=== PATIENT | male | born 1990 | race Caucasian/White ===

== ENCOUNTER 2018-06-02 13:05 | Inpatient (IN) | payer OTHER ==
[~2018-06-02] VITALS: Ht 180.3 cm; Wt 105.8 kg
[2018-06-02] MEDS ORDERED: IV NORMAL SALINE 1000ML BAG 1,000 ML IV ONE (13:15)
[2018-06-02 13:23] LABS: BASO % 0 % (0-3); EOS # 0.1 x10^3/uL (0.0-0.7); EOS % 0 % (0-3); HEMATOCRIT 45.6 % (39.0-53.0); HEMOGLOBIN 15.3 g/dL (13.0-17.5); LYMPH # 3.2 x10^3/uL (1.0-4.8); LYMPH % 21 % (24-48); MEAN CORPUSCULAR HEMOGLOBIN 30 pg (25-35); MEAN CORPUSCULAR HGB CONC 34 g/dL (31-37); MEAN CORPUSCULAR VOLUME 89 fL (79-100); MONO # 1.1 x10^3/uL (0.0-1.1); MONO % 7 % (0-9); NEUT % 71 % (31-73); PLATELET COUNT 308 x10^3/uL (140-400); RED BLOOD COUNT 5.15 x10^6/uL (4.30-5.70); RED CELL DISTRIBUTION WIDTH 14.9 % (11.5-14.5); WHITE BLOOD COUNT 15.4 x10^3/uL (4.0-11.0)
[2018-06-02 13:34] LABS: CALCIUM 9.3 mg/dL (8.5-10.1); CREATININE 1.2 mg/dL (0.7-1.3); GFR 72.1
[2018-06-02 13:41] LABS: ALBUMIN 4.5 g/dL (3.4-5.0); ALBUMIN/GLOBULIN RATIO 1.1 (1.0-1.7); PROTHROMBIN TIME PATIENT 12.4 SEC (11.7-14.0); TOTAL BILIRUBIN 0.3 mg/dL (0.2-1.0); TOTAL PROTEIN 8.6 g/dL (6.4-8.2)
--- NOTE | 2018-06-02 13:50 | RAD ---
CT brain without contrast. HISTORY: Seizure first-time seizure CT scan of brain was done without contrast. There is no intracranial hemorrhage or subdural hematoma. Ventricles are normal in size. There is no mass or shift of the midline. An acute CVA is not identified. Mastoids are normally aerated. Sinuses are clear. IMPRESSION: 1. No intracranial hemorrhage or acute finding noted. PQRS Compliance Statement: One or more of the following individualized dose reduction techniques were utilized for this examination: 1. Automated exposure control 2. Adjustment of the mA and/or kV according to patient size 3. Use of iterative reconstruction technique Electronically signed by: Fred Melgar MD (06/02/2018 1:47 PM) [facility] [place]
--- NOTE | 2018-06-02 14:11 | PHYS DOC ---
Past Medical History Past Medical History: No Pertinent History, Hypertension Past Surgical History: No Surgical History Alcohol Use: None Drug Use: None Adult General Chief Complaint Chief Complaint: SEIZURE HPI HPI Patient is a 28 year old MALE was brought here by EMS for evaluation of seizure activity. Patient had one last night, Patient denies any head or neck injury at that time. Patient did not have any history of seizure disorder. Patient woke up this morning then had another seizure when he bit his tongue. He had no history diabetic, no history of coronary artery disease. Patient said he has history hypertension, he is on losartan. Review of Systems Review of Systems Constitutional: Denies fever or chills [] Eyes: Denies change in visual acuity, redness, or eye pain [] HENT: Denies nasal congestion , POSITIVE FOR TONGUE INSURY Respiratory: Denies cough or shortness of breath [] Cardiovascular: No additional information not addressed in HPI [] GI: Denies abdominal pain, nausea, vomiting, bloody stools or diarrhea [] : Denies dysuria or hematuria [] Musculoskeletal: Denies back pain or joint pain [] Integument: Denies rash or skin lesions [] Neurologic: Positive for headache and seizure NO focal weakness or sensory changes [] Endocrine: Denies polyuria or polydipsia [] All other systems were reviewed and found to be within normal limits, except as documented in this note. Current Medications Current Medications Current Medications Medications (Trade) Dose Ordered Sig/[facility] Start Time Stop Time Status Last Admin Dose Admin Acetaminophen (Tylenol) 1,000 mg 1X ONCE 06/02/18 14:15 06/02/18 14:16 Levetiracetam 1000 mg/Dextrose 110 ml @ 440 mls/hr 1X ONCE 06/02/18 14:30 06/02/18 14:44 06/02/18 13:52 440 MLS/HR Ondansetron HCl (Zofran) 4 mg PRN Q8HRS PRN 06/02/18 14:15 06/03/18 14:14 UNV Sodium Chloride 1,000 ml @ 1,000 mls/hr 1X ONCE 06/02/18 13:15 06/02/18 14:14 06/02/18 13:52 1,000 MLS/HR Allergies Allergies Allergies Coded Allergies Type Severity Reaction Last Updated Verified No Known Drug Allergies 06/02/18 No Physical Exam Physical Exam Constitutional: Well developed, well nourished, no acute distress, non-toxic appearance. [] HENT: Normocephalic, atraumatic, bilateral external ears normal, nose normal, LEFT ANTERIOR TONGUE ABRASION, CONTUSION WITH BLOOD INSIDE OROPHARYNX AREA. Eyes: PERRLA, EOMI, conjunctiva normal, no discharge. [] Neck: Normal range of motion, no tenderness, supple, no stridor. [] Cardiovascular:Heart rate regular rhythm, no murmur [] Lungs & Thorax: Bilateral breath sounds clear to auscultation [] Abdomen: Bowel sounds normal, soft, no tenderness, no masses, no pulsatile masses. [] Skin: Warm, dry, no erythema, no rash. [] Back: No tenderness, no CVA tenderness. [] Extremities: No tenderness, no cyanosis, no clubbing, ROM intact, no edema. [] Neurologic: Alert and oriented X 3, normal motor function, normal sensory function, no focal deficits noted. [] Psychologic: Affect normal, judgement normal, mood normal. [] Current Patient Data Vital Signs Vital Signs Date Time Temp Pulse Resp B/P (MAP) Pulse Ox O2 Delivery O2 Flow Rate FiO2 06/02/18 13:16 97.9 107 16 154/89 (110) 97 Room Air 97.9 Lab Values Laboratory Tests Test 06/02/18 13:10 White Blood Count 15.4 x10^3/uL (4.0-11.0) H Red Blood Count 5.15 x10^6/uL (4.30-5.70) Hemoglobin 15.3 g/dL (13.0-17.5) Hematocrit 45.6 % (39.0-53.0) Mean Corpuscular Volume 89 fL (79-100) Mean Corpuscular Hemoglobin 30 pg (25-35) Mean Corpuscular Hemoglobin Concent 34 g/dL (31-37) Red Cell Distribution Width 14.9 % (11.5-14.5) H Platelet Count 308 x10^3/uL (140-400) Neutrophils (%) (Auto) 71 % (31-73) Lymphocytes (%) (Auto) 21 % (24-48) L Monocytes (%) (Auto) 7 % (0-9) Eosinophils (%) (Auto) 0 % (0-3) Basophils (%) (Auto) 0 % (0-3) Neutrophils # (Auto) 11.0 x10^3uL (1.8-7.7) H Lymphocytes # (Auto) 3.2 x10^3/uL (1.0-4.8) Monocytes # (Auto) 1.1 x10^3/uL (0.0-1.1) Eosinophils # (Auto) 0.1 x10^3/uL (0.0-0.7) Basophils # (Auto) 0.0 x10^3/uL (0.0-0.2) Prothrombin Time 12.4 SEC (11.7-14.0) Prothrombin Time INR 1.0 (0.8-1.1) PTT 29 SEC (24-38) Sodium Level 137 mmol/L (136-145) Potassium Level 4.0 mmol/L (3.5-5.1) Chloride Level 97 mmol/L (98-107) L Carbon Dioxide Level 21 mmol/L (21-32) Anion Gap 19 (6-14) H Blood Urea Nitrogen 15 mg/dL (8-26) Creatinine 1.2 mg/dL (0.7-1.3) Estimated GFR (Cockcroft-Gault) 72.1 BUN/Creatinine Ratio 13 (6-20) Glucose Level 85 mg/dL (70-99) Calcium Level 9.3 mg/dL (8.5-10.1) Total Bilirubin 0.3 mg/dL (0.2-1.0) Aspartate Amino Transferase (AST) 22 U/L (15-37) Alanine Aminotransferase (ALT) 25 U/L (16-63) Alkaline Phosphatase 49 U/L (46-116) Creatine Kinase 527 U/L (39-308) H Troponin I Quantitative < 0.017 ng/mL (0.000-0.055) Total Protein 8.6 g/dL (6.4-8.2) H Albumin 4.5 g/dL (3.4-5.0) Albumin/Globulin Ratio 1.1 (1.0-1.7) Laboratory Tests 06/02/18 13:10 Laboratory Tests 06/02/18 13:10 EKG EKG EKG : RATE OF 98 BPM, NO STEMI, NSR. [] Radiology/Procedures Radiology/Procedures [][facility] [address] [place] [address] IMAGING REPORT Signed PATIENT: GEETHA DELANEY ACCOUNT: [id number] : 1990 LOCATION: ER AGE: 28 SEX: M EXAM STATUS: PRE ER ORD. PHYSICIAN: JAY WESTFALL DO REASON: seizure PROCEDURE: CT HEAD WO CONTRAST CT brain without contrast. HISTORY: Seizure first-time seizure CT scan of brain was done without contrast. There is no intracranial hemorrhage or subdural hematoma. Ventricles are normal in size. There is no mass or shift of the midline. An acute CVA is not identified. Mastoids are normally aerated. Sinuses are clear. IMPRESSION: 1. No intracranial hemorrhage or acute finding noted. RS Compliance Statement: One or more of the following individualized dose reduction techniques were utilized for this examination: 1. Automated exposure control 2. Adjustment of the mA and/or kV according to patient size 3. Use of iterative reconstruction technique Electronically signed by: Fred Melgar MD (06/02/2018 1:47 PM) [facility] DICTATED and SIGNED BY: FRED MELGAR MD DATE: 06/02/18 1346 Course & Med Decision Making Course & Med Decision Making Pertinent Labs and Imaging studies reviewed. (See chart for details) [] Dragon Disclaimer Dragon Disclaimer This electronic medical record was generated, in whole or in part, using a voice recognition dictation system. Departure Departure Impression: Primary Impression: Seizure Disposition: 09 ADMITTED INPATIENT Admitting Physician: Hitesh Khan Condition: STABLE JAY WESTFALL DO Jun 02, 2018 14:11
[2018-06-02] MEDS ORDERED: ACETAMINOPHEN 500 MG TABLET PO ONE (14:15)
[2018-06-02] MEDS ORDERED: ONDANSETRON PF 4 MG/2 ML VIAL. IV PRN (14:15)
[2018-06-02] MEDS ORDERED: levETIRAcetam 1,000 MG in IV DEXTROSE 5% 100ML 100 ML IV ONE (14:30)
[2018-06-02] MEDS: NICOTINE 21MG PATCH. TD SCH (16:00)
--- NOTE | 2018-06-02 16:46 | PDOC2 ---
NEUROLOGY CONSULT Date of Admission Date of Admission DATE: 06/02/18 TIME: 16:45 Full Report Dictated Patient is a pleasant 28-year-old man who normally goes to bed at 10 PM but was staying awake till 4 AM watching television. He also took for tramadol 4 at once for the first time yesterday. He had a seizure around 4 AM and then a second seizure around noon today. He bit his tongue. He had postictal confusion. There is no history of seizure or head trauma. CT scan of the head was negative. Neurologic examination was negative. I will arrange for an MRI brain with and without contrast and an EEG. I do not feel compelled on an anticonvulsant needs to be initiated at this time unless an abnormality is detected in the studies. Current Medications Current Medications Current Medications Levetiracetam 1000 mg/Dextrose 110 ml @ 440 mls/hr 1X ONCE IV Last administered on 06/02/18at 13:52; Start 06/02/18 at 14:30; Stop 06/02/18 at 14:44 ; Status DC Sodium Chloride 1,000 ml @ 1,000 mls/hr 1X ONCE IV Last administered on at 13:52; Start 06/02/18 at 13:15; Stop 06/02/18 at 14:14; Status DC Acetaminophen (Tylenol) 1,000 mg 1X ONCE PO Last administered on 06/02/18at 15: 00; Start 06/02/18 at 14:15; Stop 06/02/18 at 14:16; Status DC Ondansetron HCl (Zofran) 4 mg PRN Q8HRS PRN IV NAUSEA/VOMITING; Start 06/02/18 at 14:15; Stop 06/03/18 at 14:14 Nicotine (Nicoderm Cq 21mg) 1 patch DAILY TD ; Start 06/02/18 at 16:30 Allergies Allergies: Coded Allergies: No Known Drug Allergies (Unverified , 06/02/18) Vitals VITALS Vital Signs Date Time Temp Pulse Resp B/P (MAP) Pulse Ox O2 Delivery O2 Flow Rate FiO2 06/02/18 14:30 84 100 06/02/18 13:16 97.9 16 154/89 (110) Room Air 97.9 Labs Labs Laboratory Tests Test 06/02/18 13:10 White Blood Count 15.4 x10^3/uL (4.0-11.0) Red Blood Count 5.15 x10^6/uL (4.30-5.70) Hemoglobin 15.3 g/dL (13.0-17.5) Hematocrit 45.6 % (39.0-53.0) Mean Corpuscular Volume 89 fL (79-100) Mean Corpuscular Hemoglobin 30 pg (25-35) Mean Corpuscular Hemoglobin Concent 34 g/dL (31-37) Red Cell Distribution Width 14.9 % (11.5-14.5) Platelet Count 308 x10^3/uL (140-400) Neutrophils (%) (Auto) 71 % (31-73) Lymphocytes (%) (Auto) 21 % (24-48) Monocytes (%) (Auto) 7 % (0-9) Eosinophils (%) (Auto) 0 % (0-3) Basophils (%) (Auto) 0 % (0-3) Neutrophils # (Auto) 11.0 x10^3uL (1.8-7.7) Lymphocytes # (Auto) 3.2 x10^3/uL (1.0-4.8) Monocytes # (Auto) 1.1 x10^3/uL (0.0-1.1) Eosinophils # (Auto) 0.1 x10^3/uL (0.0-0.7) Basophils # (Auto) 0.0 x10^3/uL (0.0-0.2) Prothrombin Time 12.4 SEC (11.7-14.0) Prothromb Time International Ratio 1.0 (0.8-1.1) Activated Partial Thromboplast Time 29 SEC (24-38) Sodium Level 137 mmol/L (136-145) Potassium Level 4.0 mmol/L (3.5-5.1) Chloride Level 97 mmol/L (98-107) Carbon Dioxide Level 21 mmol/L (21-32) Anion Gap 19 (6-14) Blood Urea Nitrogen 15 mg/dL (8-26) Creatinine 1.2 mg/dL (0.7-1.3) Estimated GFR (Cockcroft-Gault) 72.1 BUN/Creatinine Ratio 13 (6-20) Glucose Level 85 mg/dL (70-99) Calcium Level 9.3 mg/dL (8.5-10.1) Total Bilirubin 0.3 mg/dL (0.2-1.0) Aspartate Amino Transf (AST/SGOT) 22 U/L (15-37) Alanine Aminotransferase (ALT/SGPT) 25 U/L (16-63) Alkaline Phosphatase 49 U/L (46-116) Creatine Kinase 527 U/L (39-308) Troponin I Quantitative < 0.017 ng/mL (0.000-0.055) Total Protein 8.6 g/dL (6.4-8.2) Albumin 4.5 g/dL (3.4-5.0) Albumin/Globulin Ratio 1.1 (1.0-1.7) Ethyl Alcohol Level < 10 mg/dL (0-10) Laboratory Tests Test 06/02/18 13:10 White Blood Count 15.4 x10^3/uL (4.0-11.0) Red Blood Count 5.15 x10^6/uL (4.30-5.70) Hemoglobin 15.3 g/dL (13.0-17.5) Hematocrit 45.6 % (39.0-53.0) Mean Corpuscular Volume 89 fL (79-100) Mean Corpuscular Hemoglobin 30 pg (25-35) Mean Corpuscular Hemoglobin Concent 34 g/dL (31-37) Red Cell Distribution Width 14.9 % (11.5-14.5) Platelet Count 308 x10^3/uL (140-400) Neutrophils (%) (Auto) 71 % (31-73) Lymphocytes (%) (Auto) 21 % (24-48) Monocytes (%) (Auto) 7 % (0-9) Eosinophils (%) (Auto) 0 % (0-3) Basophils (%) (Auto) 0 % (0-3) Neutrophils # (Auto) 11.0 x10^3uL (1.8-7.7) Lymphocytes # (Auto) 3.2 x10^3/uL (1.0-4.8) Monocytes # (Auto) 1.1 x10^3/uL (0.0-1.1) Eosinophils # (Auto) 0.1 x10^3/uL (0.0-0.7) Basophils # (Auto) 0.0 x10^3/uL (0.0-0.2) Prothrombin Time 12.4 SEC (11.7-14.0) Prothromb Time International Ratio 1.0 (0.8-1.1) Activated Partial Thromboplast Time 29 SEC (24-38) Sodium Level 137 mmol/L (136-145) Potassium Level 4.0 mmol/L (3.5-5.1) Chloride Level 97 mmol/L (98-107) Carbon Dioxide Level 21 mmol/L (21-32) Anion Gap 19 (6-14) Blood Urea Nitrogen 15 mg/dL (8-26) Creatinine 1.2 mg/dL (0.7-1.3) Estimated GFR (Cockcroft-Gault) 72.1 BUN/Creatinine Ratio 13 (6-20) Glucose Level 85 mg/dL (70-99) Calcium Level 9.3 mg/dL (8.5-10.1) Total Bilirubin 0.3 mg/dL (0.2-1.0) Aspartate Amino Transf (AST/SGOT) 22 U/L (15-37) Alanine Aminotransferase (ALT/SGPT) 25 U/L (16-63) Alkaline Phosphatase 49 U/L (46-116) Creatine Kinase 527 U/L (39-308) Troponin I Quantitative < 0.017 ng/mL (0.000-0.055) Total Protein 8.6 g/dL (6.4-8.2) Albumin 4.5 g/dL (3.4-5.0) Albumin/Globulin Ratio 1.1 (1.0-1.7) Ethyl Alcohol Level < 10 mg/dL (0-10) MAURICIO DO MD Jun 02, 2018 16:46
--- NOTE | 2018-06-02 17:35 | EKG ---
[facility] [address] [place] [address] Test Date: 2018-06-02 Test Time: 13:15:27 Pat Name: GEETHA DELANEY Department: Room: 658 1 Gender: M [employer] Person: GAGE : 1990 Requested By: JAY WESTFALL Order Number: [id number] Reading MD: Jorden Hernandez MD Measurements Intervals [place] Rate: 98 P: 39 MS: 140 QRS: 28 QRSD: 82 T: 24 QT: 330 QTc: 423 Interpretive Statements SINUS RHYTHM Electronically Signed On 06-03-2018 15:22:20 [employer] [facility] TECHNICIAN by Jorden Hernandez MD
[2018-06-02 19:57] VITALS: BP 117/68
--- NOTE | 2018-06-02 22:53 | PDOC1 ---
History and Physical Date of Admission Date of Admission DATE: 06/02/18 TIME: 22:52 Identification/Chief Complaint Chief Complaint seen in er ,28 year old MALE was brought here by EMS for evaluation of seizure activity. Patient had one last night,and today Patient denies any head or neck injury at that time. no history of seizure disorder. did admit to thc use, bit tongue Past Medical History Past Medical History Past Medical History: No Pertinent History, Hypertension Past Surgical History: No Surgical History Alcohol Use: None Drug Use: thc smokes ippd family hx obesity Psych: Addictions Family History Family History: High Cholestrol Social History Smoke: <1 pack per day ALCOHOL: occassional Current Problem List Problem List Problems Medical Problems: (1) Seizure Status: Acute Current Medications Current Medications Current Medications Levetiracetam 1000 mg/Dextrose 110 ml @ 440 mls/hr 1X ONCE IV Last administered on 06/02/18at 13:52; Start 06/02/18 at 14:30; Stop 06/02/18 at 14:44 ; Status DC Sodium Chloride 1,000 ml @ 1,000 mls/hr 1X ONCE IV Last administered on at 13:52; Start 06/02/18 at 13:15; Stop 06/02/18 at 14:14; Status DC Acetaminophen (Tylenol) 1,000 mg 1X ONCE PO Last administered on 06/02/18at 15: 00; Start 06/02/18 at 14:15; Stop 06/02/18 at 14:16; Status DC Ondansetron HCl (Zofran) 4 mg PRN Q8HRS PRN IV NAUSEA/VOMITING; Start 06/02/18 at 14:15; Stop 06/03/18 at 14:14 Nicotine (Nicoderm Cq 21mg) 1 patch DAILY TD Last administered on 06/02/18at 16: 00; Start 06/02/18 at 16:30 Allergies Allergies: Coded Allergies: No Known Drug Allergies (Unverified , 06/02/18) ROS Review of System Review of Systems Review of Systems Constitutional: Denies fever or chills [] Eyes: Denies change in visual acuity, redness, or eye pain [] HENT: Denies nasal congestion , POSITIVE FOR TONGUE INSURY Respiratory: Denies cough or shortness of breath [] Cardiovascular: No additional information not addressed in HPI [] GI: Denies abdominal pain, nausea, vomiting, bloody stools or diarrhea [] : Denies dysuria or hematuria [] Musculoskeletal: Denies back pain or joint pain [] Integument: Denies rash or skin lesions [] Neurologic: Positive for headache and seizure NO focal weakness or sensory changes [] Endocrine: Denies polyuria or polydipsia [] 14 pt systems were reviewed and found to be within normal limits, except as documented PSYCHOLOGICAL ROS: YES: Anxiety Genitourinary: No Dysuria, No Frequency, No Incontinence, No Hematuria, No Retention, No Discharge, No Urgency, No Pain, No Flank Pain, No Other, No , No , No , No , No , No , No Physical Exam Physical Exam Physical Exam Physical Exam Constitutional: Well developed, well nourished, no acute distress, non-toxic appearance. [] HENT: Normocephalic, atraumatic, bilateral external ears normal, nose normal, LEFT ANTERIOR TONGUE ABRASION, CONTUSION WITH BLOOD INSIDE OROPHARYNX AREA. Eyes: PERRLA, EOMI, conjunctiva normal, no discharge. [] Neck: Normal range of motion, no tenderness, supple, no stridor. [] Cardiovascular:Heart rate regular rhythm, no murmur [] Lungs & Thorax: Bilateral breath sounds clear to auscultation [] Abdomen: Bowel sounds normal, soft, no tenderness, no masses, no pulsatile masses. [] Skin: Warm, dry, no erythema, no rash. [] Back: No tenderness, no CVA tenderness. [] Extremities: No tenderness, no cyanosis, no clubbing, ROM intact, no edema. [] Neurologic: Alert and oriented X 3, normal motor function, normal sensory function, no focal deficits noted. [] Psychologic: Affect normal, judgement normal, mood normal. [] General: Alert, Oriented X3, Cooperative Rectal Exam: not examined Extremities: No cyanosis Neuro: Normal speech, Cranial nerves 3-12 NL Vitals Vitals Vital Signs Date Time Temp Pulse Resp B/P (MAP) Pulse Ox O2 Delivery O2 Flow Rate FiO2 06/02/18 20:00 Room Air 06/02/18 19:57 97.3 96 18 117/68 (84) 100 97.3 Labs Labs Laboratory Tests Test 06/02/18 13:10 White Blood Count 15.4 x10^3/uL (4.0-11.0) Red Blood Count 5.15 x10^6/uL (4.30-5.70) Hemoglobin 15.3 g/dL (13.0-17.5) Hematocrit 45.6 % (39.0-53.0) Mean Corpuscular Volume 89 fL (79-100) Mean Corpuscular Hemoglobin 30 pg (25-35) Mean Corpuscular Hemoglobin Concent 34 g/dL (31-37) Red Cell Distribution Width 14.9 % (11.5-14.5) Platelet Count 308 x10^3/uL (140-400) Neutrophils (%) (Auto) 71 % (31-73) Lymphocytes (%) (Auto) 21 % (24-48) Monocytes (%) (Auto) 7 % (0-9) Eosinophils (%) (Auto) 0 % (0-3) Basophils (%) (Auto) 0 % (0-3) Neutrophils # (Auto) 11.0 x10^3uL (1.8-7.7) Lymphocytes # (Auto) 3.2 x10^3/uL (1.0-4.8) Monocytes # (Auto) 1.1 x10^3/uL (0.0-1.1) Eosinophils # (Auto) 0.1 x10^3/uL (0.0-0.7) Basophils # (Auto) 0.0 x10^3/uL (0.0-0.2) Prothrombin Time 12.4 SEC (11.7-14.0) Prothromb Time International Ratio 1.0 (0.8-1.1) Activated Partial Thromboplast Time 29 SEC (24-38) Sodium Level 137 mmol/L (136-145) Potassium Level 4.0 mmol/L (3.5-5.1) Chloride Level 97 mmol/L (98-107) Carbon Dioxide Level 21 mmol/L (21-32) Anion Gap 19 (6-14) Blood Urea Nitrogen 15 mg/dL (8-26) Creatinine 1.2 mg/dL (0.7-1.3) Estimated GFR (Cockcroft-Gault) 72.1 BUN/Creatinine Ratio 13 (6-20) Glucose Level 85 mg/dL (70-99) Calcium Level 9.3 mg/dL (8.5-10.1) Total Bilirubin 0.3 mg/dL (0.2-1.0) Aspartate Amino Transf (AST/SGOT) 22 U/L (15-37) Alanine Aminotransferase (ALT/SGPT) 25 U/L (16-63) Alkaline Phosphatase 49 U/L (46-116) Creatine Kinase 527 U/L (39-308) Troponin I Quantitative < 0.017 ng/mL (0.000-0.055) Total Protein 8.6 g/dL (6.4-8.2) Albumin 4.5 g/dL (3.4-5.0) Albumin/Globulin Ratio 1.1 (1.0-1.7) Ethyl Alcohol Level < 10 mg/dL (0-10) Laboratory Tests Test 06/02/18 13:10 White Blood Count 15.4 x10^3/uL (4.0-11.0) Red Blood Count 5.15 x10^6/uL (4.30-5.70) Hemoglobin 15.3 g/dL (13.0-17.5) Hematocrit 45.6 % (39.0-53.0) Mean Corpuscular Volume 89 fL (79-100) Mean Corpuscular Hemoglobin 30 pg (25-35) Mean Corpuscular Hemoglobin Concent 34 g/dL (31-37) Red Cell Distribution Width 14.9 % (11.5-14.5) Platelet Count 308 x10^3/uL (140-400) Neutrophils (%) (Auto) 71 % (31-73) Lymphocytes (%) (Auto) 21 % (24-48) Monocytes (%) (Auto) 7 % (0-9) Eosinophils (%) (Auto) 0 % (0-3) Basophils (%) (Auto) 0 % (0-3) Neutrophils # (Auto) 11.0 x10^3uL (1.8-7.7) Lymphocytes # (Auto) 3.2 x10^3/uL (1.0-4.8) Monocytes # (Auto) 1.1 x10^3/uL (0.0-1.1) Eosinophils # (Auto) 0.1 x10^3/uL (0.0-0.7) Basophils # (Auto) 0.0 x10^3/uL (0.0-0.2) Prothrombin Time 12.4 SEC (11.7-14.0) Prothromb Time International Ratio 1.0 (0.8-1.1) Activated Partial Thromboplast Time 29 SEC (24-38) Sodium Level 137 mmol/L (136-145) Potassium Level 4.0 mmol/L (3.5-5.1) Chloride Level 97 mmol/L (98-107) Carbon Dioxide Level 21 mmol/L (21-32) Anion Gap 19 (6-14) Blood Urea Nitrogen 15 mg/dL (8-26) Creatinine 1.2 mg/dL (0.7-1.3) Estimated GFR (Cockcroft-Gault) 72.1 BUN/Creatinine Ratio 13 (6-20) Glucose Level 85 mg/dL (70-99) Calcium Level 9.3 mg/dL (8.5-10.1) Total Bilirubin 0.3 mg/dL (0.2-1.0) Aspartate Amino Transf (AST/SGOT) 22 U/L (15-37) Alanine Aminotransferase (ALT/SGPT) 25 U/L (16-63) Alkaline Phosphatase 49 U/L (46-116) Creatine Kinase 527 U/L (39-308) Troponin I Quantitative < 0.017 ng/mL (0.000-0.055) Total Protein 8.6 g/dL (6.4-8.2) Albumin 4.5 g/dL (3.4-5.0) Albumin/Globulin Ratio 1.1 (1.0-1.7) Ethyl Alcohol Level < 10 mg/dL (0-10) Images Images CT scan of brain was done without contrast. There is no intracranial hemorrhage or subdural hematoma. Ventricles are normal in size. There is no mass or shift of the midline. An acute CVA is not identified. Mastoids are normally aerated. Sinuses are clear. IMPRESSION: 1. No intracranial hemorrhage or acute finding noted. VTE Prophylaxis Ordered VTE Prophylaxis Devices: Yes VTE Pharmacological Prophylaxi: Yes Assessment/Plan Assessment/Plan impression 1. seizure, possible relation to substance abuse plan admit seizure precautions iv ativan 1-2 mg q 2-3 hrs prn seizure activity neurology consult tele sq lovenox dvt prophylaxis DONNA JIMENEZ MD Jun 02, 2018 22:52
[2018-06-02] MEDS ORDERED: PIP/TAZO PER PHARMACY MC PRN (23:00)
[2018-06-02 23:09] VITALS: BP 130/70
[2018-06-02 23:15] LABS: BARBITURATES NEG (NEG); BENZODIAZEPINES NEG (NEG); CANNABINOIDS POS (NEG); COCAINE NEG (NEG); METHADONE NEG (NEG); OPIATES NEG (NEG); PHENCYCLIDINE NEG (NEG)
[2018-06-02] MEDS: ENOXAPARIN 40 MG/0.4 ML SYRINGE. SQ SCH (23:15)
[2018-06-02 23:16] LABS: AMPHETAMINE/METHAMPHETAMINE NEG (NEG)
--- NOTE | 2018-06-02 23:17 | CONS ---
DATE OF CONSULTATION: 06/02/2018 REFERRING PHYSICIAN: Hitesh Llanes M.D. REASON FOR CONSULTATION: Seizure. HISTORY OF PRESENT ILLNESS: The patient is a pleasant 28-year-old who was in bed last night, watching his usual TV shows on his phone. His normal bedtime is around 10:00 p.m. but for whatever reason, he was up at 4:00 a.m. watching. The next thing he remembers is waking up on the ground. His was present and reported to him that he shook for 1-2 minutes. She called 911. He remembers waking up confused and not understanding why she had called 911. He refused transport. He had a second seizure around noon today. The seizure also lasted 1-2 minutes. He bit his tongue. He feels extremely sore throughout his body. He has a headache following the seizure. He has not had any fevers. He did take 4 tramadol for the first time yesterday at 2:00 p.m. He also uses oxycodone for pain management for chronic back pain. He has been at home or could he lost his job at at the [employer]. He occasionally smokes marijuana but denies other recreational drugs. He does not drink alcohol. PAST MEDICAL HISTORY: 1. Chronic back pain. 2. Hypertension. ALLERGIES: No known allergies to drugs. MEDICATIONS: Prior to admission: Tramadol, which he is not prescribed and oxycodone, which he is prescribed. He had previously been on losartan for blood pressure. FAMILY HISTORY: He does not report any diseases that run in the family. SOCIAL HISTORY: He is and has an almost 1-year-old son. He does not smoke tobacco. He rarely drinks alcohol with the most recent consumption and on his birthday in [birth year]. He rarely smokes marijuana. REVIEW OF SYSTEMS: He does have a headache. There has been no change of vision or hearing. He does not have any cognitive change. He has soreness of his tongue where he bit it. He has not had trouble swallowing. He has not had shortness of breath, chest or abdominal pain. He does not have bone or joint pain but does have muscular pain after the seizure. He has not had any recent fever or rash. He has chronic constipation only going to the bathroom once per week. He has not been able to urinate since he has been in the hospital. He has trouble initiating urination but then once it gets started, he is fine and does not have a slow stream. He does not complain of numbness or weakness of the extremities. He has not noticed any change in walking or balance. He does not complain of easy bruising, bleeding or swelling. He does not have any psychiatric concerns. PHYSICAL EXAMINATION: VITAL SIGNS: The blood pressure was 154/89, pulse 84, respirations 16 and temperature 97.9 degrees Fahrenheit. Oximetry was 100% on room air. GENERAL: He was alert, awake and cooperative. Speech was fluent and clear. He had a good fund of recent and remote knowledge. Attention and concentration was intact. He appeared well groomed and well nourished. NEUROLOGICAL: Examination of the cranial nerves revealed visual reynolds were full to confrontation. Extraocular movements were intact. The eyes are conjugate. Pursuit movements were smooth and saccadic eye movements were without dysmetria. Pupils were 4 mm and reacted directly and consensually. He did not have an afferent pupillary defect. Funduscopic exam did not reveal papilledema, exudate or hemorrhage. Facial sensation was intact. The muscles of mastication and facial expression were powerful symmetrically. Hearing was intact to finger rub. The palate arched symmetrically and the tongue was midline with full range of motion. Sternocleidomastoid and trapezius were powerful. Muscle bulk and tone was normal. There was no arm drift or abnormal movement. There was no leg drift. The power was full and symmetric in the upper and lower extremities. Reflexes were 2/4 and symmetric in the upper and lower extremities. The toes are downgoing. Coordination testing with [id number], [id number], fine motor and rapid alternating movements was well performed. The sensory exam was intact to pain, light touch, proprioception, graphesthesia, cold thermal and vibration. There was no extinction to double simultaneous stimulation. Gait was normal base and was steady. He is able to heel, toe and tandem walk. The Romberg stance was negative. Auscultation of the carotid arteries did not reveal a bruit. Heart rhythm was regular without a murmur. Peripheral pulses were 2/4 and symmetric in the hands and feet. There was no edema or cyanosis of the extremities. LABORATORY DATA: Review of the laboratory data: CBC revealed an elevated white blood cell count of 15.4 with normal hemoglobin, hematocrit and platelet count. Chemistry revealed normal sodium and potassium but chloride was low at 97 and CO2 normal at 21. The BUN, creatinine and GFR calculated normally. The glucose was normal. Calcium and albumin were normal. The total protein was elevated at 8.6. Liver enzymes are not elevated. CPK was elevated to 527. Troponin was not elevated. Alcohol was not detected. PT/INR was 1 and PTT was 29. RADIOLOGICAL DATA: CT scan of the brain was performed without contrast on 06/02/2018 and revealed no acute intracranial process. IMPRESSION: The patient is a 28-year-old who had a seizure twice today one occurring at 4:00 a.m. and the other around noon. Both lasted about a minute and a half to 2 minutes long and were followed by postictal phase. He bit his tongue on the left side. The cause of the seizure may be a number of extenuating circumstances with sleep deprivation as well as tramadol. He does not have a prior history of seizure or head trauma. His neurologic exam was normal. RECOMMENDATIONS: I would recommend we proceed with an MRI brain with and without contrast with seizure protocol. We will also obtain an EEG. If both of these studies were negative, then I would not feel compelled that he needs to be definitely initiated on an anticonvulsant. I would advise him to stay away from tramadol and to protect his sleep. We also discussed other things, which can lower seizure threshold such as fever, sedating antihistamines and decongestants. We also discussed that some recreational drugs can also lower the seizure threshold. If the investigation is negative, then potentially he will be dismissed on 06/03/2018. I appreciate being involved in his care. MAURICIO DO MD DR: JOSUE/jana JOB#: [id number] / [id number] Dr BARBARA Steen THOMAS MD Shi, Dr
[2018-06-02] MEDS ORDERED: LOSA1TAB22 (23:28)
[2018-06-02] MEDS ORDERED: HYDR-2766 (23:28)
[2018-06-02] MEDS ORDERED: ALPR1TAB6 (23:28)
[2018-06-03 03:05] VITALS: BP 109/70
[2018-06-03] MEDS: PIPERACILLIN/TAZOBACTAM 4.5 GM in IV NORMAL SALINE 100ML 100 ML IV SCH ×4 (05:32→11:26)
[2018-06-03 07:00] VITALS: BP 114/64
[2018-06-03 11:00] VITALS: BP 123/73
[2018-06-03] MEDS: NICOTINE 21MG PATCH. TD SCH (11:24)
[2018-06-03] MEDS: HYDROcodone/APAP 10/325 1 TAB TABLET PO PRN ×3 (11:43→21:05)
--- NOTE | 2018-06-03 11:53 | PDOC ---
PROGRESS NOTES History of Present Illness History of Present Illness VTE Prophylaxis Ordered VTE Prophylaxis Devices: Yes VTE Pharmacological Prophylaxi: Yes Assessment/Plan Assessment/Plan impression 1. seizure, possible relation to substance abuse, THC 2. htn 3. chronic pain followed by PCP [facility] plan admit seizure precautions iv ativan 1-2 mg q 2-3 hrs prn seizure activity neurology consult PENDING tele sq lovenox dvt prophylaxis Vitals Vitals Vital Signs Date Time Temp Pulse Resp B/P (MAP) Pulse Ox O2 Delivery O2 Flow Rate FiO2 06/03/18 11:43 98 Room Air 06/03/18 11:00 98.2 76 20 123/73 (90) 98.2 Physical Exam General: Alert, Oriented X3, Cooperative, No acute distress Heart: Regular rate, Normal S1, Normal S2 Lungs: Clear Abdomen: Normal bowel sounds, Soft Extremities: No clubbing, No cyanosis Skin: No significant lesion Labs LABS Laboratory Tests Test 06/02/18 13:10 06/02/18 23:00 White Blood Count 15.4 x10^3/uL (4.0-11.0) Red Blood Count 5.15 x10^6/uL (4.30-5.70) Hemoglobin 15.3 g/dL (13.0-17.5) Hematocrit 45.6 % (39.0-53.0) Mean Corpuscular Volume 89 fL (79-100) Mean Corpuscular Hemoglobin 30 pg (25-35) Mean Corpuscular Hemoglobin Concent 34 g/dL (31-37) Red Cell Distribution Width 14.9 % (11.5-14.5) Platelet Count 308 x10^3/uL (140-400) Neutrophils (%) (Auto) 71 % (31-73) Lymphocytes (%) (Auto) 21 % (24-48) Monocytes (%) (Auto) 7 % (0-9) Eosinophils (%) (Auto) 0 % (0-3) Basophils (%) (Auto) 0 % (0-3) Neutrophils # (Auto) 11.0 x10^3uL (1.8-7.7) Lymphocytes # (Auto) 3.2 x10^3/uL (1.0-4.8) Monocytes # (Auto) 1.1 x10^3/uL (0.0-1.1) Eosinophils # (Auto) 0.1 x10^3/uL (0.0-0.7) Basophils # (Auto) 0.0 x10^3/uL (0.0-0.2) Prothrombin Time 12.4 SEC (11.7-14.0) Prothromb Time International Ratio 1.0 (0.8-1.1) Activated Partial Thromboplast Time 29 SEC (24-38) Sodium Level 137 mmol/L (136-145) Potassium Level 4.0 mmol/L (3.5-5.1) Chloride Level 97 mmol/L (98-107) Carbon Dioxide Level 21 mmol/L (21-32) Anion Gap 19 (6-14) Blood Urea Nitrogen 15 mg/dL (8-26) Creatinine 1.2 mg/dL (0.7-1.3) Estimated GFR (Cockcroft-Gault) 72.1 BUN/Creatinine Ratio 13 (6-20) Glucose Level 85 mg/dL (70-99) Calcium Level 9.3 mg/dL (8.5-10.1) Total Bilirubin 0.3 mg/dL (0.2-1.0) Aspartate Amino Transf (AST/SGOT) 22 U/L (15-37) Alanine Aminotransferase (ALT/SGPT) 25 U/L (16-63) Alkaline Phosphatase 49 U/L (46-116) Creatine Kinase 527 U/L (39-308) Troponin I Quantitative < 0.017 ng/mL (0.000-0.055) Total Protein 8.6 g/dL (6.4-8.2) Albumin 4.5 g/dL (3.4-5.0) Albumin/Globulin Ratio 1.1 (1.0-1.7) Ethyl Alcohol Level < 10 mg/dL (0-10) Urine Opiates Screen Neg (NEG) Urine Methadone Screen Neg (NEG) Urine Barbiturates Neg (NEG) Urine Phencyclidine Screen Neg (NEG) Urine Amphetamine/Methamphetamine Neg (NEG) Urine Benzodiazepines Screen Neg (NEG) Urine Cocaine Screen Neg (NEG) Urine Cannabinoids Screen Pos (NEG) Urine Ethyl Alcohol Neg (NEG) Assessment and Plan Assessmemt and Plan Problems Medical Problems: (1) Seizure Status: Acute Comment Review of Relevant I have reviewed the following items karlie (where applicable) has been applied. Labs Laboratory Tests Test 06/02/18 13:10 06/02/18 23:00 White Blood Count 15.4 x10^3/uL (4.0-11.0) Red Blood Count 5.15 x10^6/uL (4.30-5.70) Hemoglobin 15.3 g/dL (13.0-17.5) Hematocrit 45.6 % (39.0-53.0) Mean Corpuscular Volume 89 fL (79-100) Mean Corpuscular Hemoglobin 30 pg (25-35) Mean Corpuscular Hemoglobin Concent 34 g/dL (31-37) Red Cell Distribution Width 14.9 % (11.5-14.5) Platelet Count 308 x10^3/uL (140-400) Neutrophils (%) (Auto) 71 % (31-73) Lymphocytes (%) (Auto) 21 % (24-48) Monocytes (%) (Auto) 7 % (0-9) Eosinophils (%) (Auto) 0 % (0-3) Basophils (%) (Auto) 0 % (0-3) Neutrophils # (Auto) 11.0 x10^3uL (1.8-7.7) Lymphocytes # (Auto) 3.2 x10^3/uL (1.0-4.8) Monocytes # (Auto) 1.1 x10^3/uL (0.0-1.1) Eosinophils # (Auto) 0.1 x10^3/uL (0.0-0.7) Basophils # (Auto) 0.0 x10^3/uL (0.0-0.2) Prothrombin Time 12.4 SEC (11.7-14.0) Prothromb Time International Ratio 1.0 (0.8-1.1) Activated Partial Thromboplast Time 29 SEC (24-38) Sodium Level 137 mmol/L (136-145) Potassium Level 4.0 mmol/L (3.5-5.1) Chloride Level 97 mmol/L (98-107) Carbon Dioxide Level 21 mmol/L (21-32) Anion Gap 19 (6-14) Blood Urea Nitrogen 15 mg/dL (8-26) Creatinine 1.2 mg/dL (0.7-1.3) Estimated GFR (Cockcroft-Gault) 72.1 BUN/Creatinine Ratio 13 (6-20) Glucose Level 85 mg/dL (70-99) Calcium Level 9.3 mg/dL (8.5-10.1) Total Bilirubin 0.3 mg/dL (0.2-1.0) Aspartate Amino Transf (AST/SGOT) 22 U/L (15-37) Alanine Aminotransferase (ALT/SGPT) 25 U/L (16-63) Alkaline Phosphatase 49 U/L (46-116) Creatine Kinase 527 U/L (39-308) Troponin I Quantitative < 0.017 ng/mL (0.000-0.055) Total Protein 8.6 g/dL (6.4-8.2) Albumin 4.5 g/dL (3.4-5.0) Albumin/Globulin Ratio 1.1 (1.0-1.7) Ethyl Alcohol Level < 10 mg/dL (0-10) Urine Opiates Screen Neg (NEG) Urine Methadone Screen Neg (NEG) Urine Barbiturates Neg (NEG) Urine Phencyclidine Screen Neg (NEG) Urine Amphetamine/Methamphetamine Neg (NEG) Urine Benzodiazepines Screen Neg (NEG) Urine Cocaine Screen Neg (NEG) Urine Cannabinoids Screen Pos (NEG) Urine Ethyl Alcohol Neg (NEG) Laboratory Tests Test 06/02/18 13:10 06/02/18 23:00 White Blood Count 15.4 x10^3/uL (4.0-11.0) Red Blood Count 5.15 x10^6/uL (4.30-5.70) Hemoglobin 15.3 g/dL (13.0-17.5) Hematocrit 45.6 % (39.0-53.0) Mean Corpuscular Volume 89 fL (79-100) Mean Corpuscular Hemoglobin 30 pg (25-35) Mean Corpuscular Hemoglobin Concent 34 g/dL (31-37) Red Cell Distribution Width 14.9 % (11.5-14.5) Platelet Count 308 x10^3/uL (140-400) Neutrophils (%) (Auto) 71 % (31-73) Lymphocytes (%) (Auto) 21 % (24-48) Monocytes (%) (Auto) 7 % (0-9) Eosinophils (%) (Auto) 0 % (0-3) Basophils (%) (Auto) 0 % (0-3) Neutrophils # (Auto) 11.0 x10^3uL (1.8-7.7) Lymphocytes # (Auto) 3.2 x10^3/uL (1.0-4.8) Monocytes # (Auto) 1.1 x10^3/uL (0.0-1.1) Eosinophils # (Auto) 0.1 x10^3/uL (0.0-0.7) Basophils # (Auto) 0.0 x10^3/uL (0.0-0.2) Prothrombin Time 12.4 SEC (11.7-14.0) Prothromb Time International Ratio 1.0 (0.8-1.1) Activated Partial Thromboplast Time 29 SEC (24-38) Sodium Level 137 mmol/L (136-145) Potassium Level 4.0 mmol/L (3.5-5.1) Chloride Level 97 mmol/L (98-107) Carbon Dioxide Level 21 mmol/L (21-32) Anion Gap 19 (6-14) Blood Urea Nitrogen 15 mg/dL (8-26) Creatinine 1.2 mg/dL (0.7-1.3) Estimated GFR (Cockcroft-Gault) 72.1 BUN/Creatinine Ratio 13 (6-20) Glucose Level 85 mg/dL (70-99) Calcium Level 9.3 mg/dL (8.5-10.1) Total Bilirubin 0.3 mg/dL (0.2-1.0) Aspartate Amino Transf (AST/SGOT) 22 U/L (15-37) Alanine Aminotransferase (ALT/SGPT) 25 U/L (16-63) Alkaline Phosphatase 49 U/L (46-116) Creatine Kinase 527 U/L (39-308) Troponin I Quantitative < 0.017 ng/mL (0.000-0.055) Total Protein 8.6 g/dL (6.4-8.2) Albumin 4.5 g/dL (3.4-5.0) Albumin/Globulin Ratio 1.1 (1.0-1.7) Ethyl Alcohol Level < 10 mg/dL (0-10) Urine Opiates Screen Neg (NEG) Urine Methadone Screen Neg (NEG) Urine Barbiturates Neg (NEG) Urine Phencyclidine Screen Neg (NEG) Urine Amphetamine/Methamphetamine Neg (NEG) Urine Benzodiazepines Screen Neg (NEG) Urine Cocaine Screen Neg (NEG) Urine Cannabinoids Screen Pos (NEG) Urine Ethyl Alcohol Neg (NEG) Medications Current Medications Levetiracetam 1000 mg/Dextrose 110 ml @ 440 mls/hr 1X ONCE IV Last administered on 06/02/18at 13:52; Start 06/02/18 at 14:30; Stop 06/02/18 at 14:44 ; Status DC Sodium Chloride 1,000 ml @ 1,000 mls/hr 1X ONCE IV Last administered on at 13:52; Start 06/02/18 at 13:15; Stop 06/02/18 at 14:14; Status DC Acetaminophen (Tylenol) 1,000 mg 1X ONCE PO Last administered on 06/02/18at 15: 00; Start 06/02/18 at 14:15; Stop 06/02/18 at 14:16; Status DC Ondansetron HCl (Zofran) 4 mg PRN Q8HRS PRN IV NAUSEA/VOMITING; Start 06/02/18 at 14:15; Stop 06/03/18 at 14:14 Nicotine (Nicoderm Cq 21mg) 1 patch DAILY TD Last administered on 06/03/18at 11: 24; Start 06/02/18 at 16:30 Piperacillin Sod/ Tazobactam Sod (Zosyn Per Pharmacy) 1 each PRN DAILY PRN MC SEE COMMENTS; Start 06/02/18 at 23:00 Lorazepam (Ativan) 2 mg PRN Q4HRS PRN IV ANXIETY / AGITATION Last administered on 06/03/18at 11:48; Start 06/02/18 at 23:00 Enoxaparin Sodium (Lovenox 40mg Syringe) 40 mg Q24H SQ ; Start 06/02/18 at 23:15 Piperacillin Sod/ Tazobactam Sod 4.5 gm/Sodium Chloride 100 ml @ 200 mls/hr Q6HRS IV Last administered on 06/03/18at 11:26; Start 06/03/18 at 00:00 Acetaminophen/ Hydrocodone Bitart (Lortab 10/325) 1 tab PRN Q4HRS PRN PO PAIN Last administered on 06/03/18at 11:43; Start 06/03/18 at 11:30 Active Scripts Active Reported Losartan-Hctz 100-25 Mg Tab (Losartan/Hydrochlorothiazide) 1 Each Tablet 1 DAILY08 Hydrocodone-Apap 10-325 (Hydrocodone Bit/Acetaminophen) 1 Each Tablet 2 Q4HRS PRN Alprazolam 1 Mg Tablet 1 TID PRN PRN Vitals/I & O Vital Sign - Last 24 Hours 06/02/18 06/02/18 06/02/18 06/02/18 13:16 13:30 14:30 19:57 Temp 97.9 97.3 97.9 97.3 Pulse 107 94 84 96 Resp 16 18 B/P (MAP) 154/89 (110) 117/68 (84) Pulse Ox 97 100 100 100 O2 Delivery Room Air Room Air 06/02/18 06/02/18 06/03/18 06/03/18 20:00 23:09 03:05 07:00 Temp 97.8 97.7 98.3 97.8 97.7 98.3 Pulse 80 71 86 Resp 19 16 22 B/P (MAP) 130/70 (90) 109/70 (83) 114/64 (81) Pulse Ox 98 98 99 O2 Delivery Room Air Room Air Room Air Room Air 06/03/18 06/03/18 11:00 11:43 Temp 98.2 98.2 Pulse 76 Resp 20 B/P (MAP) 123/73 (90) Pulse Ox 98 98 O2 Delivery Room Air Room Air Intake and Output 06/02/18 06/02/18 06/03/18 15:00 23:00 07:00 Intake Total 1100 ml 730 ml Output Total 1950 ml Balance 1100 ml -1220 ml DONNA JIMENEZ MD Jun 03, 2018 11:53
[2018-06-03] MEDS ORDERED: ALPRAZolam 1 MG TABLET PO PRN (14:45)
[2018-06-03 15:00] VITALS: BP 137/82
[2018-06-03] MEDS: LOSARTAN POTASSIUM 50 MG TABLET. PO SCH (15:00)
[2018-06-03] MEDS: hydroCHLOROthiazide 25 MG TABLET PO SCH (15:00)
[2018-06-03] MEDS ORDERED: HYDROcodone/APAP 10/325 1 TAB TABLET PO PRN (15:00)
--- NOTE | 2018-06-03 16:49 | RAD ---
Lumbar spine, 3 views, 06/03/2018: HISTORY: Low back pain The lumbar disc spaces and vertebral heights are well-maintained. No fracture or subluxation is evident. A slight lumbar scoliosis may be positional. The paraspinous soft tissues are unremarkable. IMPRESSION: No significant bony abnormality is detected. Electronically signed by: Wil Lopez MD (06/03/2018 4:46 PM) [facility]
--- NOTE | 2018-06-03 17:45 | PDOC ---
PROGRESS NOTES Assessment Assessment IMPRESSION: Seizure, provoked by Cannabinoids likely. Cannabinoids use/abuse x 10 years. Smoking for 10 years. Obesity. RECOMMENDATIONS/PLAN: EEG. Dilantin 400 mg HS after EEG. Patient education for seizure precautions. Patient education for drug abstinence. No driving x 6 months anytime after a seizure. FU with PCP. HCT: Negative. Past Medical History Hypertension PAST SURGICAL HISTORY: No major surgery. Family History High Cholestrol PAST SURGICAL HISTORY: No major surgery. ALLERGY: NKDA SOCIAL HISTORY: Smoking 1. 5 pack of cigarettes a day for about 190 years. Marijuana on a regular basis for 10 years. MEDICATIONS: Refer to [facility] REVIEW OF SYSTEMS: Constitutional: Obesity. Head: No traumatic brain or head injury. Skin: No edema, or rash. Ear: No infection. Eyes: No vision loss, or diplopia. Nose: No bleeding or purulent discharges. Hearing: No hearing decrease. Neck: No injury. Breast: No history of cancer, masses, or discharges. Cardiac: HTN Pulmonary: No pneumonia. GI: No GI Ulcer, GI bleeding, GERD Urinary/genital: No dysuria, incontinence, urinary retention, UTI. Endocrine: Obesity. Skeletomuscular: No muscular atrophy, deformity. Neurological: see HP. Psychiatric: Drug use/abuse. Otherwise, not [id number] review of systems. PHYSICAL EXAMINATION: General appearance in no acute distress. HEENT: Normocephalic and nontraumatic. Eyes, nose, ears, and throat are unremarkable. Neck is supple. No lymphadenopathy. No bruits are heard over the carotid artery. No Crepitus. Cardiovascular: S1, S2, regular rate and rhythm. Pulmonary: Clear to auscultation bilaterally. Abdomen: Bowel sounds are positive. Abdomen is soft, nontender, and nondistended. Extremities: No rash, lesions, or edema. No restriction of range of motion NEUROLOGICAL EXAMINATION: Alert. Oriented to time, place and person. PERRL. EOMI. CN: no focal findings. Muscle tone: within normal. Muscle strength: 5 DTR: 2 Plantar reflex: Flexor response bilaterally Gait: At baseline normal. Sensory exam: no abnormal findings. No cerebellar signs elicited. F-T-N test accurate. Objective Objective Vital Signs Date Time Temp Pulse Resp B/P (MAP) Pulse Ox O2 Delivery O2 Flow Rate FiO2 06/03/18 17:27 20 06/03/18 15:00 98.2 87 137/82 (100) 99 Room Air 98.2 Intake and Output 06/03/18 07:00 Intake Total 1830 ml Output Total 1950 ml Balance -120 ml Intake Oral 730 ml IV Total 1100 ml Output Urine Total 1950 ml # Voids 5 Vitals Signs Vitals VS - Last 72 Hours, by Label Date Time Temp Pulse Resp B/P (MAP) Pulse Ox O2 Delivery O2 Flow Rate FiO2 06/03/18 17:27 20 06/03/18 15:00 98.2 87 20 137/82 (100) 99 Room Air 98.2 06/03/18 12:57 98 Room Air 06/03/18 11:43 98 Room Air 06/03/18 11:00 98.2 76 20 123/73 (90) 98 Room Air 98.2 06/03/18 08:00 Room Air 06/03/18 07:00 98.3 86 22 114/64 (81) 99 Room Air 98.3 06/03/18 03:05 97.7 71 16 109/70 (83) 98 Room Air 97.7 06/02/18 23:09 97.8 80 19 130/70 (90) 98 Room Air 97.8 06/02/18 20:00 Room Air 06/02/18 19:57 97.3 96 18 117/68 (84) 100 Room Air 97.3 06/02/18 14:30 84 100 06/02/18 13:30 94 100 06/02/18 13:16 97.9 107 16 154/89 (110) 97 Room Air 97.9 Laboratory Laboratory Laboratory Tests Test 06/02/18 23:00 Urine Opiates Screen Neg (NEG) Urine Methadone Screen Neg (NEG) Urine Barbiturates Neg (NEG) Urine Phencyclidine Screen Neg (NEG) Urine Amphetamine/Methamphetamine Neg (NEG) Urine Benzodiazepines Screen Neg (NEG) Urine Cocaine Screen Neg (NEG) Urine Cannabinoids Screen Pos (NEG) Urine Ethyl Alcohol Neg (NEG) Medication Medications Current Medications Acetaminophen/ Hydrocodone Bitart (Lortab 10/325) 1 tab PRN Q4HRS PRN PO PAIN Last administered on 06/03/18at 17:27; Start 06/03/18 at 11:30 Acetaminophen/ Hydrocodone Bitart (Lortab 10/325) 2 tab PRN Q4HRS PRN PO MODERATE TO SEVERE PAIN; Start 06/03/18 at 15:00; Stop 06/03/18 at 17:25; Status DC Alprazolam (Xanax) 1 mg TID PRN PRN PO ANXIETY / AGITATION; Start 06/03/18 at 14:45 Enoxaparin Sodium (Lovenox 40mg Syringe) 40 mg Q24H SQ ; Start 06/02/18 at 23:15 Hydrochlorothiazide (Hydrodiuril) 25 mg DAILY PO Last administered on at 15:00; Start 06/03/18 at 15:00 Lorazepam (Ativan) 2 mg PRN Q4HRS PRN IV ANXIETY / AGITATION Last administered on 06/03/18at 11:48; Start 06/02/18 at 23:00 Losartan Potassium (Cozaar) 100 mg DAILY PO ; Start 06/03/18 at 15:00 Piperacillin Sod/ Tazobactam Sod (Zosyn Per Pharmacy) 1 each PRN DAILY PRN MC SEE COMMENTS; Start 06/02/18 at 23:00 Piperacillin Sod/ Tazobactam Sod 3.375 gm/Sodium Chloride 50 ml @ 100 mls/hr Q6HRS IV ; Start 06/03/18 at 18:00 Piperacillin Sod/ Tazobactam Sod 4.5 gm/Sodium Chloride 100 ml @ 200 mls/hr Q6HRS IV Last administered on 06/03/18at 11:26; Start 06/03/18 at 00:00; Stop 06/03/18 at 14:40; Status DC Comment Review of Relevant I have reviewed the following items karlie (where applicable) has been applied. BLANCO LANGLEY MD Jun 03, 2018 17:45
[2018-06-03] MEDS: PIPERACILLIN/TAZOBACTAM 3.375 GM in IV NORMAL SALINE 50ML 50 ML IV SCH (18:00)
[2018-06-03 19:35] VITALS: BP 144/84
[2018-06-03] MEDS: ENOXAPARIN 40 MG/0.4 ML SYRINGE. SQ SCH (21:06)
[2018-06-03 23:40] VITALS: BP 139/70
[2018-06-04 03:07] LABS: BARBITURATES NEG (NEG); BENZODIAZEPINES NEG (NEG); CANNABINOIDS POS (NEG); COCAINE NEG (NEG); METHADONE NEG (NEG); OPIATES POS (NEG); PHENCYCLIDINE NEG (NEG)
[2018-06-04 03:08] LABS: AMPHETAMINE/METHAMPHETAMINE POS (NEG)
[2018-06-04 03:40] VITALS: BP 120/66
[2018-06-04 05:17] LABS: BASO % 0 % (0-3); EOS # 0.2 x10^3/uL (0.0-0.7); EOS % 2 % (0-3); HEMATOCRIT 42.5 % (39.0-53.0); HEMOGLOBIN 14.5 g/dL (13.0-17.5); LYMPH # 3.7 x10^3/uL (1.0-4.8); LYMPH % 39 % (24-48); MEAN CORPUSCULAR HEMOGLOBIN 30 pg (25-35); MEAN CORPUSCULAR HGB CONC 34 g/dL (31-37); MEAN CORPUSCULAR VOLUME 89 fL (79-100); MONO # 0.7 x10^3/uL (0.0-1.1); MONO % 7 % (0-9); NEUT # 4.7 x10^3uL (1.8-7.7); NEUT % 51 % (31-73); PLATELET COUNT 253 x10^3/uL (140-400); RED CELL DISTRIBUTION WIDTH 14.9 % (11.5-14.5); WHITE BLOOD COUNT 9.3 x10^3/uL (4.0-11.0)
[2018-06-04 05:38] LABS: ALBUMIN 3.8 g/dL (3.4-5.0); ALBUMIN/GLOBULIN RATIO 1.1 (1.0-1.7); CALCIUM 9.3 mg/dL (8.5-10.1); CREATININE 0.9 mg/dL (0.7-1.3); GFR 100.5; POTASSIUM 4.2 mmol/L (3.5-5.1); TOTAL BILIRUBIN 0.3 mg/dL (0.2-1.0); TOTAL PROTEIN 7.4 g/dL (6.4-8.2)
[2018-06-04] MEDS: PIPERACILLIN/TAZOBACTAM 3.375 GM in IV NORMAL SALINE 50ML 50 ML IV SCH ×3 (06:00)
[2018-06-04 07:30] VITALS: BP 125/74
[2018-06-04] MEDS: LOSARTAN POTASSIUM 50 MG TABLET. PO SCH ×2 (08:22→08:26)
[2018-06-04] MEDS: hydroCHLOROthiazide 25 MG TABLET PO SCH ×2 (08:22→08:26)
[2018-06-04] MEDS: HYDROcodone/APAP 10/325 1 TAB TABLET PO PRN (08:22)
[2018-06-04] MEDS: NICOTINE 21MG PATCH. TD SCH (08:24)
--- NOTE | 2018-06-04 09:16 | PDOC ---
PROGRESS NOTES History of Present Illness History of Present Illness VTE Prophylaxis Ordered VTE Prophylaxis Devices: Yes VTE Pharmacological Prophylaxi: Yes Assessment/Plan Assessment/Plan impression 1. seizure, possible relation to substance abuse, THC 2. htn 3. chronic pain followed by PCP [facility] left ama plan admit seizure precautions iv ativan 1-2 mg q 2-3 hrs prn seizure activity neurology consult PENDING tele sq lovenox dvt prophylaxis Vitals Vitals Vital Signs Date Time Temp Pulse Resp B/P (MAP) Pulse Ox O2 Delivery O2 Flow Rate FiO2 06/04/18 08:22 100 Room Air 06/04/18 07:30 98.1 87 18 125/74 (91) 98.1 Physical Exam General: Alert, Oriented X3, Cooperative, No acute distress Heart: Regular rate, Normal S1, Normal S2 Lungs: Clear Abdomen: Normal bowel sounds, Soft Extremities: No clubbing, No cyanosis Skin: No significant lesion Labs LABS Laboratory Tests Test 06/03/18 23:00 06/04/18 03:55 Urine Opiates Screen Pos (NEG) Urine Methadone Screen Neg (NEG) Urine Barbiturates Neg (NEG) Urine Phencyclidine Screen Neg (NEG) Urine Amphetamine/Methamphetamine Pos (NEG) Urine Benzodiazepines Screen Neg (NEG) Urine Cocaine Screen Neg (NEG) Urine Cannabinoids Screen Pos (NEG) Urine Ethyl Alcohol Neg (NEG) White Blood Count 9.3 x10^3/uL (4.0-11.0) Red Blood Count 4.80 x10^6/uL (4.30-5.70) Hemoglobin 14.5 g/dL (13.0-17.5) Hematocrit 42.5 % (39.0-53.0) Mean Corpuscular Volume 89 fL (79-100) Mean Corpuscular Hemoglobin 30 pg (25-35) Mean Corpuscular Hemoglobin Concent 34 g/dL (31-37) Red Cell Distribution Width 14.9 % (11.5-14.5) Platelet Count 253 x10^3/uL (140-400) Neutrophils (%) (Auto) 51 % (31-73) Lymphocytes (%) (Auto) 39 % (24-48) Monocytes (%) (Auto) 7 % (0-9) Eosinophils (%) (Auto) 2 % (0-3) Basophils (%) (Auto) 0 % (0-3) Neutrophils # (Auto) 4.7 x10^3uL (1.8-7.7) Lymphocytes # (Auto) 3.7 x10^3/uL (1.0-4.8) Monocytes # (Auto) 0.7 x10^3/uL (0.0-1.1) Eosinophils # (Auto) 0.2 x10^3/uL (0.0-0.7) Basophils # (Auto) 0.0 x10^3/uL (0.0-0.2) Sodium Level 141 mmol/L (136-145) Potassium Level 4.2 mmol/L (3.5-5.1) Chloride Level 102 mmol/L (98-107) Carbon Dioxide Level 31 mmol/L (21-32) Anion Gap 8 (6-14) Blood Urea Nitrogen 13 mg/dL (8-26) Creatinine 0.9 mg/dL (0.7-1.3) Estimated GFR (Cockcroft-Gault) 100.5 BUN/Creatinine Ratio 14 (6-20) Glucose Level 79 mg/dL (70-99) Calcium Level 9.3 mg/dL (8.5-10.1) Total Bilirubin 0.3 mg/dL (0.2-1.0) Aspartate Amino Transf (AST/SGOT) 21 U/L (15-37) Alanine Aminotransferase (ALT/SGPT) 23 U/L (16-63) Alkaline Phosphatase 46 U/L (46-116) Total Protein 7.4 g/dL (6.4-8.2) Albumin 3.8 g/dL (3.4-5.0) Albumin/Globulin Ratio 1.1 (1.0-1.7) Assessment and Plan Assessmemt and Plan Problems Medical Problems: (1) Seizure Status: Acute Comment Review of Relevant I have reviewed the following items karlie (where applicable) has been applied. Labs Laboratory Tests Test 06/02/18 13:10 06/02/18 23:00 06/03/18 23:00 06/04/18 03:55 White Blood Count 15.4 x10^3/uL (4.0-11.0) 9.3 x10^3/uL (4.0-11.0) Red Blood Count 5.15 x10^6/uL (4.30-5.70) 4.80 x10^6/uL (4.30-5.70) Hemoglobin 15.3 g/dL (13.0-17.5) 14.5 g/dL (13.0-17.5) Hematocrit 45.6 % (39.0-53.0) 42.5 % (39.0-53.0) Mean Corpuscular Volume 89 fL (79-100) 89 fL (79-100) Mean Corpuscular Hemoglobin 30 pg (25-35) 30 pg (25-35) Mean Corpuscular Hemoglobin Concent 34 g/dL (31-37) 34 g/dL (31-37) Red Cell Distribution Width 14.9 % (11.5-14.5) 14.9 % (11.5-14.5) Platelet Count 308 x10^3/uL (140-400) 253 x10^3/uL (140-400) Neutrophils (%) (Auto) 71 % (31-73) 51 % (31-73) Lymphocytes (%) (Auto) 21 % (24-48) 39 % (24-48) Monocytes (%) (Auto) 7 % (0-9) 7 % (0-9) Eosinophils (%) (Auto) 0 % (0-3) 2 % (0-3) Basophils (%) (Auto) 0 % (0-3) 0 % (0-3) Neutrophils # (Auto) 11.0 x10^3uL (1.8-7.7) 4.7 x10^3uL (1.8-7.7) Lymphocytes # (Auto) 3.2 x10^3/uL (1.0-4.8) 3.7 x10^3/uL (1.0-4.8) Monocytes # (Auto) 1.1 x10^3/uL (0.0-1.1) 0.7 x10^3/uL (0.0-1.1) Eosinophils # (Auto) 0.1 x10^3/uL (0.0-0.7) 0.2 x10^3/uL (0.0-0.7) Basophils # (Auto) 0.0 x10^3/uL (0.0-0.2) 0.0 x10^3/uL (0.0-0.2) Prothrombin Time 12.4 SEC (11.7-14.0) Prothromb Time International Ratio 1.0 (0.8-1.1) Activated Partial Thromboplast Time 29 SEC (24-38) Sodium Level 137 mmol/L (136-145) 141 mmol/L (136-145) Potassium Level 4.0 mmol/L (3.5-5.1) 4.2 mmol/L (3.5-5.1) Chloride Level 97 mmol/L (98-107) 102 mmol/L (98-107) Carbon Dioxide Level 21 mmol/L (21-32) 31 mmol/L (21-32) Anion Gap 19 (6-14) 8 (6-14) Blood Urea Nitrogen 15 mg/dL (8-26) 13 mg/dL (8-26) Creatinine 1.2 mg/dL (0.7-1.3) 0.9 mg/dL (0.7-1.3) Estimated GFR (Cockcroft-Gault) 72.1 100.5 BUN/Creatinine Ratio 13 (6-20) 14 (6-20) Glucose Level 85 mg/dL (70-99) 79 mg/dL (70-99) Calcium Level 9.3 mg/dL (8.5-10.1) 9.3 mg/dL (8.5-10.1) Total Bilirubin 0.3 mg/dL (0.2-1.0) 0.3 mg/dL (0.2-1.0) Aspartate Amino Transf (AST/SGOT) 22 U/L (15-37) 21 U/L (15-37) Alanine Aminotransferase (ALT/SGPT) 25 U/L (16-63) 23 U/L (16-63) Alkaline Phosphatase 49 U/L (46-116) 46 U/L (46-116) Creatine Kinase 527 U/L (39-308) Troponin I Quantitative < 0.017 ng/mL (0.000-0.055) Total Protein 8.6 g/dL (6.4-8.2) 7.4 g/dL (6.4-8.2) Albumin 4.5 g/dL (3.4-5.0) 3.8 g/dL (3.4-5.0) Albumin/Globulin Ratio 1.1 (1.0-1.7) 1.1 (1.0-1.7) Ethyl Alcohol Level < 10 mg/dL (0-10) Urine Opiates Screen Neg (NEG) Pos (NEG) Urine Methadone Screen Neg (NEG) Neg (NEG) Urine Barbiturates Neg (NEG) Neg (NEG) Urine Phencyclidine Screen Neg (NEG) Neg (NEG) Urine Amphetamine/Methamphetamine Neg (NEG) Pos (NEG) Urine Benzodiazepines Screen Neg (NEG) Neg (NEG) Urine Cocaine Screen Neg (NEG) Neg (NEG) Urine Cannabinoids Screen Pos (NEG) Pos (NEG) Urine Ethyl Alcohol Neg (NEG) Neg (NEG) Laboratory Tests Test 06/03/18 23:00 06/04/18 03:55 Urine Opiates Screen Pos (NEG) Urine Methadone Screen Neg (NEG) Urine Barbiturates Neg (NEG) Urine Phencyclidine Screen Neg (NEG) Urine Amphetamine/Methamphetamine Pos (NEG) Urine Benzodiazepines Screen Neg (NEG) Urine Cocaine Screen Neg (NEG) Urine Cannabinoids Screen Pos (NEG) Urine Ethyl Alcohol Neg (NEG) White Blood Count 9.3 x10^3/uL (4.0-11.0) Red Blood Count 4.80 x10^6/uL (4.30-5.70) Hemoglobin 14.5 g/dL (13.0-17.5) Hematocrit 42.5 % (39.0-53.0) Mean Corpuscular Volume 89 fL (79-100) Mean Corpuscular Hemoglobin 30 pg (25-35) Mean Corpuscular Hemoglobin Concent 34 g/dL (31-37) Red Cell Distribution Width 14.9 % (11.5-14.5) Platelet Count 253 x10^3/uL (140-400) Neutrophils (%) (Auto) 51 % (31-73) Lymphocytes (%) (Auto) 39 % (24-48) Monocytes (%) (Auto) 7 % (0-9) Eosinophils (%) (Auto) 2 % (0-3) Basophils (%) (Auto) 0 % (0-3) Neutrophils # (Auto) 4.7 x10^3uL (1.8-7.7) Lymphocytes # (Auto) 3.7 x10^3/uL (1.0-4.8) Monocytes # (Auto) 0.7 x10^3/uL (0.0-1.1) Eosinophils # (Auto) 0.2 x10^3/uL (0.0-0.7) Basophils # (Auto) 0.0 x10^3/uL (0.0-0.2) Sodium Level 141 mmol/L (136-145) Potassium Level 4.2 mmol/L (3.5-5.1) Chloride Level 102 mmol/L (98-107) Carbon Dioxide Level 31 mmol/L (21-32) Anion Gap 8 (6-14) Blood Urea Nitrogen 13 mg/dL (8-26) Creatinine 0.9 mg/dL (0.7-1.3) Estimated GFR (Cockcroft-Gault) 100.5 BUN/Creatinine Ratio 14 (6-20) Glucose Level 79 mg/dL (70-99) Calcium Level 9.3 mg/dL (8.5-10.1) Total Bilirubin 0.3 mg/dL (0.2-1.0) Aspartate Amino Transf (AST/SGOT) 21 U/L (15-37) Alanine Aminotransferase (ALT/SGPT) 23 U/L (16-63) Alkaline Phosphatase 46 U/L (46-116) Total Protein 7.4 g/dL (6.4-8.2) Albumin 3.8 g/dL (3.4-5.0) Albumin/Globulin Ratio 1.1 (1.0-1.7) Medications Current Medications Levetiracetam 1000 mg/Dextrose 110 ml @ 440 mls/hr 1X ONCE IV Last administered on 06/02/18at 13:52; Start 06/02/18 at 14:30; Stop 06/02/18 at 14:44 ; Status DC Sodium Chloride 1,000 ml @ 1,000 mls/hr 1X ONCE IV Last administered on at 13:52; Start 06/02/18 at 13:15; Stop 06/02/18 at 14:14; Status DC Acetaminophen (Tylenol) 1,000 mg 1X ONCE PO Last administered on 06/02/18at 15: 00; Start 06/02/18 at 14:15; Stop 06/02/18 at 14:16; Status DC Ondansetron HCl (Zofran) 4 mg PRN Q8HRS PRN IV NAUSEA/VOMITING; Start 06/02/18 at 14:15; Stop 06/03/18 at 14:14; Status DC Nicotine (Nicoderm Cq 21mg) 1 patch DAILY TD Last administered on 06/04/18at 08: 24; Start 06/02/18 at 16:30 Piperacillin Sod/ Tazobactam Sod (Zosyn Per Pharmacy) 1 each PRN DAILY PRN [facility] SEE COMMENTS; Start 06/02/18 at 23:00 Lorazepam (Ativan) 2 mg PRN Q4HRS PRN IV ANXIETY / AGITATION Last administered on 06/03/18at 11:48; Start 06/02/18 at 23:00 Enoxaparin Sodium (Lovenox 40mg Syringe) 40 mg Q24H SQ ; Start 06/02/18 at 23:15 Piperacillin Sod/ Tazobactam Sod 4.5 gm/Sodium Chloride 100 ml @ 200 mls/hr Q6HRS IV Last administered on 06/03/18at 11:26; Start 06/03/18 at 00:00; Stop 06/03/18 at 14:40; Status DC Acetaminophen/ Hydrocodone Bitart (Lortab 10/325) 1 tab PRN Q4HRS PRN PO PAIN Last administered on 06/03/18at 17:27; Start 06/03/18 at 11:30; Stop 06/03/18 at 17:43; Status DC Piperacillin Sod/ Tazobactam Sod 3.375 gm/Sodium Chloride 50 ml @ 100 mls/hr Q6HRS IV ; Start 06/03/18 at 18:00 Alprazolam (Xanax) 1 mg TID PRN PRN PO ANXIETY / AGITATION; Start 06/03/18 at 14:45; Stop 06/03/18 at 17:43; Status DC Acetaminophen/ Hydrocodone Bitart (Lortab 10/325) 2 tab PRN Q4HRS PRN PO MODERATE TO SEVERE PAIN; Start 06/03/18 at 15:00; Stop 06/03/18 at 17:25; Status DC Losartan Potassium (Cozaar) 100 mg DAILY PO ; Start 06/03/18 at 15:00 Hydrochlorothiazide (Hydrodiuril) 25 mg DAILY PO Last administered on at 15:00; Start 06/03/18 at 15:00 Acetaminophen/ Hydrocodone Bitart (Lortab 10/325) 1 tab PRN QID PRN PO PAIN Last administered on 06/04/18at 08:22; Start 06/03/18 at 17:45 Active Scripts Active Reported Losartan-Hctz 100-25 Mg Tab (Losartan/Hydrochlorothiazide) 1 Each Tablet 1 DAILY08 Hydrocodone-Apap 10-325 (Hydrocodone Bit/Acetaminophen) 1 Each Tablet 2 Q4HRS PRN Alprazolam 1 Mg Tablet 1 TID PRN PRN Vitals/I & O Vital Sign - Last 24 Hours 06/03/18 06/03/18 06/03/18 06/03/18 11:00 11:43 12:57 15:00 Temp 98.2 98.2 98.2 98.2 Pulse 76 87 Resp 20 20 B/P (MAP) 123/73 (90) 137/82 (100) Pulse Ox 98 98 98 99 O2 Delivery Room Air Room Air Room Air Room Air 06/03/18 06/03/18 06/03/18 06/03/18 17:27 19:35 20:00 21:05 Temp 98.4 98.4 Pulse 89 Resp 20 20 B/P (MAP) 144/84 (104) Pulse Ox 100 O2 Delivery Room Air Room Air Room Air 06/03/18 06/03/18 06/04/18 06/04/18 22:05 23:40 03:40 07:30 Temp 97.5 98.0 98.1 97.5 98.0 98.1 Pulse 62 75 87 Resp 18 18 18 B/P (MAP) 139/70 (93) 120/66 (84) 125/74 (91) Pulse Ox 100 98 100 O2 Delivery Room Air Room Air Room Air Room Air 06/04/18 08:22 Pulse Ox 100 O2 Delivery Room Air Intake and Output 06/03/18 06/03/18 06/04/18 15:00 23:00 07:00 Intake Total 440 ml Output Total 1 ml Balance 440 ml -1 ml DONNA JIMENEZ MD Jun 04, 2018 09:16
--- NOTE | 2018-06-04 10:37 | PDOC3 ---
Discharge Summary Date of Admission: Jun 02, 2018 Date of Discharge: Jun 04, 2018 Follow-Up: 3-5 days Admitting Diagnosis comment: VTE Prophylaxis Ordered VTE Prophylaxis Devices: Yes VTE Pharmacological Prophylaxi: Yes discharge diagnosis Assessment/Plan impression 1. seizure, possible relation to substance abuse, THC 2. htn 3. chronic pain followed by PCP [facility] left ama plan admit seizure precautions iv ativan 1-2 mg q 2-3 hrs prn seizure activity neurology consult noted tele left ama Vitals Vitals Vital Signs Date Time Temp Pulse Resp B/P (MAP) Pulse Ox O2 Delivery O2 Flow Rate FiO2 06/04/18 08:22 100 Room Air 06/04/18 07:30 98.1 87 18 125/74 (91) 98.1 Physical Exam General: Alert, Oriented X3, Cooperative, No acute distress Heart: Regular rate, Normal S1, Normal S2 Lungs: Clear Abdomen: Normal bowel sounds, Soft Extremities: No clubbing, No cyanosis Skin: No significant lesion FINAL DIAGNOSIS Problems Medical Problems: (1) Seizure Status: Acute Brief Hospital Course Mr. Johnston is a 28 old [sex] who presented with [ possible seizure] CONDITION AT DISCHARGE: Comment (left ama) Discharge Medications Current Medications Levetiracetam 1000 mg/Dextrose 110 ml @ 440 mls/hr 1X ONCE IV Last administered on 06/02/18at 13:52; Start 06/02/18 at 14:30; Stop 06/02/18 at 14:44 ; Status DC Sodium Chloride 1,000 ml @ 1,000 mls/hr 1X ONCE IV Last administered on at 13:52; Start 06/02/18 at 13:15; Stop 06/02/18 at 14:14; Status DC Acetaminophen (Tylenol) 1,000 mg 1X ONCE PO Last administered on 06/02/18at 15: 00; Start 06/02/18 at 14:15; Stop 06/02/18 at 14:16; Status DC Ondansetron HCl (Zofran) 4 mg PRN Q8HRS PRN IV NAUSEA/VOMITING; Start 06/02/18 at 14:15; Stop 06/03/18 at 14:14; Status DC Nicotine (Nicoderm Cq 21mg) 1 patch DAILY TD Last administered on 06/04/18at 08: 24; Start 06/02/18 at 16:30 Piperacillin Sod/ Tazobactam Sod (Zosyn Per Pharmacy) 1 each PRN DAILY PRN [facility] SEE COMMENTS; Start 06/02/18 at 23:00 Lorazepam (Ativan) 2 mg PRN Q4HRS PRN IV ANXIETY / AGITATION Last administered on 06/03/18at 11:48; Start 06/02/18 at 23:00 Enoxaparin Sodium (Lovenox 40mg Syringe) 40 mg Q24H SQ ; Start 06/02/18 at 23:15 Piperacillin Sod/ Tazobactam Sod 4.5 gm/Sodium Chloride 100 ml @ 200 mls/hr Q6HRS IV Last administered on 06/03/18at 11:26; Start 06/03/18 at 00:00; Stop 06/03/18 at 14:40; Status DC Acetaminophen/ Hydrocodone Bitart (Lortab 10/325) 1 tab PRN Q4HRS PRN PO PAIN Last administered on 06/03/18at 17:27; Start 06/03/18 at 11:30; Stop 06/03/18 at 17:43; Status DC Piperacillin Sod/ Tazobactam Sod 3.375 gm/Sodium Chloride 50 ml @ 100 mls/hr Q6HRS IV ; Start 06/03/18 at 18:00 Alprazolam (Xanax) 1 mg TID PRN PRN PO ANXIETY / AGITATION; Start 06/03/18 at 14:45; Stop 06/03/18 at 17:43; Status DC Acetaminophen/ Hydrocodone Bitart (Lortab 10/325) 2 tab PRN Q4HRS PRN PO MODERATE TO SEVERE PAIN; Start 06/03/18 at 15:00; Stop 06/03/18 at 17:25; Status DC Losartan Potassium (Cozaar) 100 mg DAILY PO ; Start 06/03/18 at 15:00 Hydrochlorothiazide (Hydrodiuril) 25 mg DAILY PO Last administered on at 15:00; Start 06/03/18 at 15:00 Acetaminophen/ Hydrocodone Bitart (Lortab 10/325) 1 tab PRN QID PRN PO PAIN Last administered on 06/04/18at 08:22; Start 11/5/18 at 17:45 Active Scripts Active Reported Losartan-Hctz 100-25 Mg Tab (Losartan/Hydrochlorothiazide) 1 Each Tablet 1 DAILY08 Hydrocodone-Apap 10-325 (Hydrocodone Bit/Acetaminophen) 1 Each Tablet 2 Q4HRS PRN Alprazolam 1 Mg Tablet 1 TID PRN PRN Vital Signs Vital Signs Date Time Temp Pulse Resp B/P (MAP) Pulse Ox O2 Delivery O2 Flow Rate FiO2 06/04/18 08:22 100 Room Air 06/04/18 07:30 98.1 87 18 125/74 (91) 98.1 Labs Laboratory Tests Test 06/02/18 13:10 06/02/18 23:00 06/03/18 23:00 06/04/18 03:55 White Blood Count 15.4 x10^3/uL (4.0-11.0) 9.3 x10^3/uL (4.0-11.0) Red Blood Count 5.15 x10^6/uL (4.30-5.70) 4.80 x10^6/uL (4.30-5.70) Hemoglobin 15.3 g/dL (13.0-17.5) 14.5 g/dL (13.0-17.5) Hematocrit 45.6 % (39.0-53.0) 42.5 % (39.0-53.0) Mean Corpuscular Volume 89 fL (79-100) 89 fL (79-100) Mean Corpuscular Hemoglobin 30 pg (25-35) 30 pg (25-35) Mean Corpuscular Hemoglobin Concent 34 g/dL (31-37) 34 g/dL (31-37) Red Cell Distribution Width 14.9 % (11.5-14.5) 14.9 % (11.5-14.5) Platelet Count 308 x10^3/uL (140-400) 253 x10^3/uL (140-400) Neutrophils (%) (Auto) 71 % (31-73) 51 % (31-73) Lymphocytes (%) (Auto) 21 % (24-48) 39 % (24-48) Monocytes (%) (Auto) 7 % (0-9) 7 % (0-9) Eosinophils (%) (Auto) 0 % (0-3) 2 % (0-3) Basophils (%) (Auto) 0 % (0-3) 0 % (0-3) Neutrophils # (Auto) 11.0 x10^3uL (1.8-7.7) 4.7 x10^3uL (1.8-7.7) Lymphocytes # (Auto) 3.2 x10^3/uL (1.0-4.8) 3.7 x10^3/uL (1.0-4.8) Monocytes # (Auto) 1.1 x10^3/uL (0.0-1.1) 0.7 x10^3/uL (0.0-1.1) Eosinophils # (Auto) 0.1 x10^3/uL (0.0-0.7) 0.2 x10^3/uL (0.0-0.7) Basophils # (Auto) 0.0 x10^3/uL (0.0-0.2) 0.0 x10^3/uL (0.0-0.2) Prothrombin Time 12.4 SEC (11.7-14.0) Prothromb Time International Ratio 1.0 (0.8-1.1) Activated Partial Thromboplast Time 29 SEC (24-38) Sodium Level 137 mmol/L (136-145) 141 mmol/L (136-145) Potassium Level 4.0 mmol/L (3.5-5.1) 4.2 mmol/L (3.5-5.1) Chloride Level 97 mmol/L (98-107) 102 mmol/L (98-107) Carbon Dioxide Level 21 mmol/L (21-32) 31 mmol/L (21-32) Anion Gap 19 (6-14) 8 (6-14) Blood Urea Nitrogen 15 mg/dL (8-26) 13 mg/dL (8-26) Creatinine 1.2 mg/dL (0.7-1.3) 0.9 mg/dL (0.7-1.3) Estimated GFR (Cockcroft-Gault) 72.1 100.5 BUN/Creatinine Ratio 13 (6-20) 14 (6-20) Glucose Level 85 mg/dL (70-99) 79 mg/dL (70-99) Calcium Level 9.3 mg/dL (8.5-10.1) 9.3 mg/dL (8.5-10.1) Total Bilirubin 0.3 mg/dL (0.2-1.0) 0.3 mg/dL (0.2-1.0) Aspartate Amino Transf (AST/SGOT) 22 U/L (15-37) 21 U/L (15-37) Alanine Aminotransferase (ALT/SGPT) 25 U/L (16-63) 23 U/L (16-63) Alkaline Phosphatase 49 U/L (46-116) 46 U/L (46-116) Creatine Kinase 527 U/L (39-308) Troponin I Quantitative < 0.017 ng/mL (0.000-0.055) Total Protein 8.6 g/dL (6.4-8.2) 7.4 g/dL (6.4-8.2) Albumin 4.5 g/dL (3.4-5.0) 3.8 g/dL (3.4-5.0) Albumin/Globulin Ratio 1.1 (1.0-1.7) 1.1 (1.0-1.7) Ethyl Alcohol Level < 10 mg/dL (0-10) Urine Opiates Screen Neg (NEG) Pos (NEG) Urine Methadone Screen Neg (NEG) Neg (NEG) Urine Barbiturates Neg (NEG) Neg (NEG) Urine Phencyclidine Screen Neg (NEG) Neg (NEG) Urine Amphetamine/Methamphetamine Neg (NEG) Pos (NEG) Urine Benzodiazepines Screen Neg (NEG) Neg (NEG) Urine Cocaine Screen Neg (NEG) Neg (NEG) Urine Cannabinoids Screen Pos (NEG) Pos (NEG) Urine Ethyl Alcohol Neg (NEG) Neg (NEG) Laboratory Tests Test 06/03/18 23:00 06/04/18 03:55 Urine Opiates Screen Pos (NEG) Urine Methadone Screen Neg (NEG) Urine Barbiturates Neg (NEG) Urine Phencyclidine Screen Neg (NEG) Urine Amphetamine/Methamphetamine Pos (NEG) Urine Benzodiazepines Screen Neg (NEG) Urine Cocaine Screen Neg (NEG) Urine Cannabinoids Screen Pos (NEG) Urine Ethyl Alcohol Neg (NEG) White Blood Count 9.3 x10^3/uL (4.0-11.0) Red Blood Count 4.80 x10^6/uL (4.30-5.70) Hemoglobin 14.5 g/dL (13.0-17.5) Hematocrit 42.5 % (39.0-53.0) Mean Corpuscular Volume 89 fL (79-100) Mean Corpuscular Hemoglobin 30 pg (25-35) Mean Corpuscular Hemoglobin Concent 34 g/dL (31-37) Red Cell Distribution Width 14.9 % (11.5-14.5) Platelet Count 253 x10^3/uL (140-400) Neutrophils (%) (Auto) 51 % (31-73) Lymphocytes (%) (Auto) 39 % (24-48) Monocytes (%) (Auto) 7 % (0-9) Eosinophils (%) (Auto) 2 % (0-3) Basophils (%) (Auto) 0 % (0-3) Neutrophils # (Auto) 4.7 x10^3uL (1.8-7.7) Lymphocytes # (Auto) 3.7 x10^3/uL (1.0-4.8) Monocytes # (Auto) 0.7 x10^3/uL (0.0-1.1) Eosinophils # (Auto) 0.2 x10^3/uL (0.0-0.7) Basophils # (Auto) 0.0 x10^3/uL (0.0-0.2) Sodium Level 141 mmol/L (136-145) Potassium Level 4.2 mmol/L (3.5-5.1) Chloride Level 102 mmol/L (98-107) Carbon Dioxide Level 31 mmol/L (21-32) Anion Gap 8 (6-14) Blood Urea Nitrogen 13 mg/dL (8-26) Creatinine 0.9 mg/dL (0.7-1.3) Estimated GFR (Cockcroft-Gault) 100.5 BUN/Creatinine Ratio 14 (6-20) Glucose Level 79 mg/dL (70-99) Calcium Level 9.3 mg/dL (8.5-10.1) Total Bilirubin 0.3 mg/dL (0.2-1.0) Aspartate Amino Transf (AST/SGOT) 21 U/L (15-37) Alanine Aminotransferase (ALT/SGPT) 23 U/L (16-63) Alkaline Phosphatase 46 U/L (46-116) Total Protein 7.4 g/dL (6.4-8.2) Albumin 3.8 g/dL (3.4-5.0) Albumin/Globulin Ratio 1.1 (1.0-1.7) Allergies Allergies Coded Allergies Type Severity Reaction Last Updated Verified No Known Drug Allergies 06/02/18 No Patient Instructions d/c paperwork 30 min DONNA JIMENEZ MD Jun 04, 2018 10:37
--- NOTE | 2018-06-04 10:38 | DISCH ---
DISCHARGE INSTRUCTIONS Condition on Discharge Condition on Discharge: Guarded Activity After Discharge Activity Instructions for Disc: Resume previous activity Lifting Instructions after Dis: No heavy lifting Exercise Instruction after Dis: Walk 10 min, 3 x per day Driving Instructions after Dis: Do not drive Diet after Discharge Diet after Discharge: Regular Contacting the DR. after DC Call your doctor for: If your condition worsens DONNA JIMENEZ MD Jun 04, 2018 10:38
--- NOTE | 2018-06-04 15:32 | EEG ---
DATE OF SERVICE: 06/03/2018 EEG NUMBER: [id number]. OBJECTIVE: This is a 28-year-old male patient with history of marijuana use. He had 3 seizures on 06/02/2018. EEG was requested to evaluate seizure activity. METHODS: Twenty electrodes were applied according to the international 10-20 electrode placement system. EKG monitoring, hyperventilation, intermittent photic stimulation, monopolar and bipolar montages are routinely utilized. The record was obtained on a digital system with video monitoring. FINDINGS: 1. Background: The patient was recorded in the awake, drowsy, and sleep states. The overall background amplitude is 10-20 microvolts. A posterior dominant rhythm of 8-10 Hz is observed. 2. Abnormalities: No specific epileptiform discharge or electrographic seizure is seen. No focal or diffuse slowing. 3. Activation: Hyperventilation was performed with good efforts and normal response. Intermittent photic stimulation was performed with photic driving. No specific epileptiform discharge or electrographic seizure induced by hyperventilation or intermittent photic stimulation. IMPRESSION: This EEG is a normal study for the awake, drowsy, and sleep states. No focal, lateralizing, specific epileptiform discharge or electrographic seizure is seen. BLANCO LANGLEY MD DR: RENATO/jana JOB#: [id number] / [id number] RICKIE
== END 2018-06-04 09:40 | disposition left against medical advice (07) | DRG 918 ==
LOC: ER 13:05 → 6 SOUTH 14:10
PROVIDERS: ADMIT Family Medicine; ATTEND Family Medicine
DX: T40.7X1A Poisoning by cannabis (derivatives), accidental (unintentional), initial encounter (principal); F19.20 Other psychoactive substance dependence, uncomplicated; Y92.89 Other specified places as the place of occurrence of the external cause; R56.9 Unspecified convulsions; E66.9 Obesity, unspecified; F12.90 Cannabis use, unspecified, uncomplicated; F17.210 Nicotine dependence, cigarettes, uncomplicated; G89.29 Other chronic pain; I10 Essential (primary) hypertension; M54.9 Dorsalgia, unspecified; Z53.21 Procedure and treatment not carried out due to patient leaving prior to being seen by health care provider; Z79.899 Other long term (current) drug therapy; Z68.35 Body mass index [BMI] 35.0-35.9, adult
CPT/HCPCS: 36415; 70450; 72100; 80053; 80307; 82550; 84484; 85025; 85610; 85730; 93005; 95816; 96365; G0480; J1953; J2060; J2543; J7030; 99285-25